=== PATIENT | female | born 1990 | race Caucasian/White ===

== ENCOUNTER → 2024-07-18 09:46 | Outpatient (REF) | payer OTHER, SELFPAY | LOC: WDC 09:46 | PROVIDERS: ATTENDING PHYSICIAN Family Medicine | DX: N63.23 Unspecified lump in the left breast, lower outer quadrant (principal) | CPT/HCPCS: 76642; 77062; 77066 ==

== ENCOUNTER 2024-08-13 20:02 | Emergency (ER) | payer OTHER, SELFPAY ==
[2024-08-13 20:06] VITALS: BP 174/87
--- NOTE | 2024-08-13 23:05 | ED.MUSCINJ ---
HPI-Injury
General
Chief Complaint: Musculo-Skeletal Complaint
Source: patient
Exam Limitations: none
Time Seen by Provider: 08/13/24 20:17
Nursing documentation reviewed up to this point in time: agreed with
History of Present Illness-Injury
Is this injury a work related problem?: No
Is pt an associate of [facility]/[place]?: No
Initial Injury comments:
Patient to ED for eval of right upper leg pain. States she initially noted pain to right medial knee. TOday pain extended to rightmedial thigh. No redness or swelling. No history of trauma. No fever/chills recent illness. No history of DVT.
No prior history of same.
Past History
Past History
ED Past Medical History: None
ED Past Surgical History: None
Social History
Personal: Single
Living: with family
Employment: Other (Student)
Review of Systems
Review of Systems
Allergies reviewed?: Yes
All Other Systems: ROS reviewed and negative except as documented in HPI and ROS
Constitutional: Reports no symptoms
EENT: Reports no symptoms
Respiratory: Reports no symptoms
Cardiac: Reports no symptoms
ABD/GI: Reports no symptoms
Musculoskeletal: Reports other (Pain to right medial knee and thigh)
Skin: Reports no symptoms
Neurological: Reports no symptoms
Psychiatric: Reports no symptoms
Musculoskeletal Injury Exam
Musculoskeletal Injury Exam
RIght medial kknee and thigh:
Pain with Movement?: Mild
Tender to palpation?: Mild
Soft tissue swelling?: None
External deformity and angulation?: None
Joint effusion?: None
Contusion?: None
Hematoma-local bleeding into tissue?: None
Crepitus with movement?: No
Joint instability?: No
Malalignment/deformity?: No
Range of motion: Full
Distal skin color and temperature: normal-warm & good color
Capillary Refill: normal
Normal distal neurovascular exam?: Yes
Peripheral Pulses: posterior tibial (right): 3+ and dorsalis pedis (right): 3+
Phy Exam
General Physical Exam
General Presentation: well appearing and no apparent distress
General age: appears stated age
General Skin: warm and dry
General Habitus: normal
General Mental: alert
Musculoskeletal Exam
Musculoskeletal Exam: full ROM and neuro vasc intact
Skin Exam
Skin Exam: normal color, warm/dry and no rash
Psychiatric Exam
Psychiatric Exam: normal mood/affect
Injury Course
Orders/Labs/Results
Orders:
Orders
08/13/24 20:36
US Periph Venous LOWER Ext RT Urgent
Comment:
Reason For Exam: thigh, medial knee pain
*Radiology
Radiology exam reviewed: radiology read reviewed
*Pulse Oximetry
Patient hypoxic: no
*Critical Care Note
Total Time (30-74mins, 75-104mins- exclusive of procedures): Not Applicable
ED Attending Note
-
Portions of this chart may have been created with voice recognition software.� Occasional wrong word or��sound alike� substitutions may have occurred due to the inherent limitations of voice recognition software.
Discharge Plan
Departure
Patient Disposition: Home (Routine Discharge)
Date of Disposition: 08/13/24
Time of Disposition: 23:28
Patient with high blood pressure during this ER visit?: No
Condition: Good
Covid-19: Not Applicable
Discharge Problem:
Pain in right thigh
Instructions: Muscle and Bone Pain (DC), Ibuprofen
Referrals:
Judy Wekes, [Family Provider] - Follow up in 2-3 days
Activity Restrictions/Additional Instructions:
Return to the emergency department immediately for any changes in/worsening of your symptoms.
Interventions
Interventions:
*Risk Screen - Suicide Last Done: 08/13/24 20:06
*General Assessment Last Done: 08/13/24 20:06
*Neglect/Abuse Screening Last Done: 08/13/24 20:06
*ED- Fall Risk Assessment Last Done: 08/13/24 23:41
*ED COVID-19 Vaccine History Last Done: 08/13/24 20:06
*Nursing Disposition Last Done: 08/13/24 23:41
ED-Musculoskeletal Assessment Last Done: 08/13/24 23:41
Discharge Date and Time
Discharge Date/Time: 08/13/24 23:42
Print Language: BAHAMIAN
[2024-08-13 23:41] VITALS: BP 150/76
== END 2024-08-13 23:42 | disposition home or self-care (01) ==
LOC: EMR 20:02
PROVIDERS: EMERGENCY PHYSICIAN Student in an Organized Health Care Education/Training Program; FAMILY PHYSICIAN Family Medicine
DX: M79.651 Pain in right thigh (principal); M25.561 Pain in right knee; Z88.6 Allergy status to analgesic agent
CPT/HCPCS: 99284; 93971

== ENCOUNTER → 2024-10-27 14:12 | Outpatient (REF) | payer OTHER, SELFPAY | LOC: WDC 14:12 | PROVIDERS: ATTENDING PHYSICIAN Family Medicine | DX: R92.2 Inconclusive mammogram (principal) | CPT/HCPCS: 76641 ==